=== PATIENT | female | born 1995 | race American Indian/Alaskan Native ===

== ENCOUNTER 2021-09-28 06:05 | Emergency (ER) | payer MEDICAID ==
[~2021-09-28] VITALS: Ht 165.1 cm; Wt 90.9 kg
[~2021-09-28 06:05] MED LIST: CEPH-571 PO; PNV91TAB3 PO
[2021-09-28] MEDS ORDERED: ondansetron 4mg rapidly disintigrating tab PO ONE (06:30)
[2021-09-28] MEDS ORDERED: ketorolac trometh inj. 60 MG/2 ML VIAL IM ONE (06:30)
[2021-09-28] MEDS ORDERED: NALO4SPR BOTHNARES (06:31)
[2021-09-28 07:16] VITALS: BP 121/88
== END 2021-09-28 07:18 | disposition home or self-care (01) ==
LOC: ER 06:06
DX: T50.905A Adverse effect of unspecified drugs, medicaments and biological substances, initial encounter (principal); F15.90 Other stimulant use, unspecified, uncomplicated; F11.90 Opioid use, unspecified, uncomplicated; Z86.19 Personal history of other infectious and parasitic diseases; Z90.89 Acquired absence of other organs; Z79.2 Long term (current) use of antibiotics; Z79.899 Other long term (current) drug therapy; Y92.89 Other specified places as the place of occurrence of the external cause
CPT/HCPCS: 96372; 99283; J1885

== ENCOUNTER 2023-02-23 19:13 | Emergency (ER) | payer MEDICAID ==
[~2023-02-23] VITALS: Ht 162.6 cm; Wt 90.9 kg
[~2023-02-23 19:13] MED LIST changes: +NALO4SPR BOTHNARES
[2023-02-23 19:34] VITALS: BP 125/74
[2023-02-23] MEDS ORDERED: CEPH-585 PO (21:14)
[2023-02-23] MEDS ORDERED: SULF1TAB49 PO (21:14)
[2023-02-23] MEDS ORDERED: cephalexin 250mg capsule PO ONE (21:15)
[2023-02-23] MEDS ORDERED: sulfamethoxazole/trimethoprim DS (800/160mg) tablet PO ONE (21:15)
== END 2023-02-23 21:55 | disposition home or self-care (01) ==
LOC: ER 19:14
DX: L02.416 Cutaneous abscess of left lower limb (principal); F15.10 Other stimulant abuse, uncomplicated; F11.10 Opioid abuse, uncomplicated; Z79.899 Other long term (current) drug therapy; Z79.1 Long term (current) use of non-steroidal anti-inflammatories (NSAID)
CPT/HCPCS: 99283